=== PATIENT | male | born 1950 | race Caucasian/White ===

== ENCOUNTER 2016-09-14 06:20 | Day surgery (SDC) | payer MEDICARE ==
[~2016-09-14] VITALS: Ht 180.3 cm; Wt 97.6 kg
[2016-09-14 06:30] VITALS: BP 157/90; PULSE 82; RESP 18; O2SAT 96
[2016-09-14] MEDS ORDERED: ASPI1TAB69 PO (07:03)
[2016-09-14] MEDS ORDERED: OMEP20TA PO (07:03)
[2016-09-14] MEDS ORDERED: LIPI40TA PO (07:03)
[2016-09-14] MEDS ORDERED: MULT1TAB84 PO (07:03)
[2016-09-14] MEDS ORDERED: NITR0.4S SL (07:03)
[2016-09-14] MEDS ORDERED: HEPARIN-NS/PF INJ 500 ML ONE (08:04)
[2016-09-14] MEDS ORDERED: MIDAZOLAM HCL 2 MG/2 ML VIAL ONE (08:11)
[2016-09-14] MEDS ORDERED: ONDANSETRON HCL 4 MG/2 ML VIAL ONE (08:44)
[2016-09-14] MEDS ORDERED: IOHEXOL 350 MG/ML 100 ML BTL (for Cath Lab) OTHER ONE (09:00)
[2016-09-14] MEDS ORDERED: LIDOCAINE HCL 1% 50 ML VIAL INFIL PRN (09:15)
[2016-09-14] MEDS ORDERED: SODIUM CHLORIDE 0.9% FLUSH 5 ML FLUSH IVF PRN (09:15)
[2016-09-14] MEDS ORDERED: SODIUM CHLOR 0.9% 250 ML INJ 250 ML IV PRN (09:15)
[2016-09-14] MEDS ORDERED: METOCLOPRAMIDE HCL 10 MG/2 ML VIAL IV PRN (09:15)
[2016-09-14] MEDS ORDERED: MISC INFORMATION XX ONE (09:15)
[2016-09-14] MEDS ORDERED: BACITRACIN OINT 0.9 GM PKT TOP ONE (09:15)
[2016-09-14] MEDS ORDERED: ONDANSETRON HCL 4 MG/2 ML VIAL IV PRN (09:15)
[2016-09-14] MEDS ORDERED: ATROPINE SULFATE 1 MG/ML VIAL IV PRN (09:15)
[2016-09-14] MEDS ORDERED: LORazepam 2 MG/ML VIAL IV PRN (09:15)
--- NOTE | 2016-09-14 09:53 | MA ---
cc: SAMANTHA DELGADILLO MD DATE 09/14/2016 PROCEDURE PERFORMED Catheterization report PROCEDURE The patient was prepped and draped in the usual fashion. A 6 sheath was inserted percutaneously into the right femoral artery. Coronary angiography was done with Yamel preformed catheters. Left ventriculography was not done. It was noted that a 4.0 diagnostic actually set up in the left main asymmetrically. One injection was done. Because of the asymmetric position of the catheter, it was withdrawn. A 4.5 diagnostic catheter was then used which set up in the left main coaxially. The remainder of the left shots were done with the 4.5 and the right coronary was visualized with a 4.0 right coronary diagnostic. After the first injection, the patient experience nausea and vomiting. He was given Zofran with resolution of his nausea, no urticaria, skin rash or shortness of breath was present. Hemodynamics were normal after the patient's nausea and vomiting. RESULTS The left main coronary was normal. The left anterior descending artery demonstrated an intraluminal stent in its midportion. This was widely patent. The remainder of the LAD was somewhat diffusely diseased with no significant stenoses seen. The first diagonal branch was a large branch arising essentially at the origin of the stent in the mid-LAD. It demonstrated some mild luminal irregularities, but no high-grade stenoses were seen. The left circumflex artery gave off a large obtuse marginal branch which is essentially normal. The circumflex descended in the AV groove and was a small diminutive artery without significant lesions noted. The right coronary was large and anatomically dominant. No significant stenoses were seen. At the end of the procedure, hemostasis was achieved with direct pressure. RESULTS This patient demonstrates a widely patent LAD stent with no other critical stenoses noted. Medical management will be continued. MD SAMI Alexis/KELLY /9:10 AM /9:42 AM
--- NOTE | 2016-09-14 15:33 | EKG ---
Date Performed: 09/14/2016 Time Performed: 06:55:22 PTAGE: 66 years EKG: Sinus rhythm Possible left anterior fascicular block Possible septal infarct - age undetermined LVH with secondar y repolarization abnormality Lateral ST-T changes may be due to hypertrophy and/or ischemia Abnormal ECG NO PREVIOUS TRACING DOCTOR: Janna Silva Interpretating Date/Time 09/14/2016 15:32:24
[2016-09-14] MEDS ORDERED: SODIUM CHLORIDE 0.9% FLUSH 5 ML FLUSH IVF SCH (21:00)
== END 2016-09-14 15:30 | disposition home or self-care (01) ==
LOC: HDOC 06:20 → HDIC 06:20 → HDOC 15:30
PROVIDERS: ATTEND Internal Medicine Cardiovascular Disease
DX: I25.10 Atherosclerotic heart disease of native coronary artery without angina pectoris (principal); R55 Syncope and collapse; I77.819 Aortic ectasia, unspecified site; I35.0 Nonrheumatic aortic (valve) stenosis; I10 Essential (primary) hypertension; E78.5 Hyperlipidemia, unspecified; D69.6 Thrombocytopenia, unspecified; Z95.5 Presence of coronary angioplasty implant and graft
CPT/HCPCS: 93005; 93454; C1769; C1893; J1644; J2250; J2405; Q9967